=== PATIENT | male | born 1990 | race African-American/Black ===

== ENCOUNTER → 2024-06-26 | Outpatient (CLI) | payer OTHER ==
[2024-06-29 23:07] LABS: AMITRIPTYLINE 31 ng/mL (Not Estab.); AMITRIPTYLINE AND NORTRIPTYLI <51 ng/mL (80-200); NORTRIPTYLINE <20 ng/mL (Not Estab.)
== END ==
LOC: M PLALAB 09:30
PROVIDERS: ATTEND Psychiatry & Neurology Neurology
DX: G43.909 Migraine, unspecified, not intractable, without status migrainosus (principal)
CPT/HCPCS: 36415; G0480